=== PATIENT | female | born 1965 | race African-American/Black ===

== ENCOUNTER 2017-02-20 02:12 | Inpatient (IN) | payer OTHER ==
[~2017-02-20] VITALS: Ht 170.2 cm; Wt 115.2 kg
--- NOTE | ~2017-02-20 | 2DMMODE ---
[facility] [address] [employer] [place] [address] 2 D/M-MODE ECHOCARDIOGRAM Name: ENID WASHINGTON Room #: 434-P ADM IN ..#: [id number] Admission: 02/20/17 Attend Phys: Camilo Lau MD Discharge: Date of : 63 Date of Service: 02/20/17 0903 Report #: [id number] THIS REPORT FOR: //name// APPROVED REPORT Study performed: 02/20/2017 08:27:15 EXAM: Comprehensive 2D, Doppler, and color-flow Echocardiogram Patient Location: Echo lab Room #: 434 Status: routine BSA: 2.17 HR: 71 bpm BP: 131/101 mmHg Rhythm: NSR Other Information Study Quality: Good Indications Chest Pressure Dyspnea Chest Pain Hx: HTN, DM 2D Dimensions RVDd: 35.23 mm LVEF(%): 56.52 (>50%) IVSd: 10.37 (7-11mm) LVOT Diam: 20.60 (18-24mm) LVDd: 47.35 mm PWd: 10.48 (7-11mm) Ascending Ao: 34.13 (22-36mm) LVDs: 33.35 (25-40mm) Aortic Root: 34.13 mm Funez's LVEF: 56.52 % Volumes Left Atrial Volume (Systole) Single Plane 4CH: 45.43 mL Single Plane 2CH: 34.61 mL LA ESV Index: 20.00 mL/m2 Aortic Valve AoV Peak Mark.: 1.14 m/s AO Peak Gr.: 5.23 mmHg LVOT Max P.18 mmHg LVOT Max V: 1.02 m/s OC Vmax: 2.98 cm2 [facility] [address] [place] [address] 2 D/M-MODE ECHOCARDIOGRAM Name: ENID WASHINGTON Room #: 434-P [facility] IN ..#: [id number] Admission: 02/20/17 Attend Phys: Camilo Lau MD Discharge: Date of : 63 Date of Service: 02/20/17 0903 Report #: [id number] Mitral Valve E/A Ratio: 0.8 MV Decel. Time: 257.77 ms MV E Max Mark.: 0.59 m/s MV A Mark.: 0.70 m/s MV PHT: 74.75 ms IVRT: 83.04 ms Pulmonary Valve PV Peak Mark.: 0.91 m/s PV Peak Gr.: 3.29 mmHg Pulmonary Vein P Vein S: 0.80 m/s P Vein D: 0.50 m/s P Vein S/D Ratio: 1.60 Tricuspid Valve TR Peak Mark.: 2.11 m/s RAP Estimate: 5.00 mmHg TR Peak Gr.: 17.74 mmHg PA Pressure: 23.00 mmHg Left Ventricle The left ventricle is normal size. There is normal LV segmental wall motion. There is normal left ventricular wall thickness. Left ventricular systolic function is normal. LVEF is 60-65%. Mild diastolic dysfunction is present (impaired relaxation pattern). Right Ventricle The right ventricle is normal size. The right ventricular systolic function is normal. Atria The left atrium size is normal. The right atrium size is normal. Aortic Valve The aortic valve is normal in structure. No aortic regurgitation is present. There is no aortic valvular stenosis. Mitral Valve The mitral valve is normal in structure. There is no mitral valve regurgitation noted. No evidence of mitral valve stenosis. Tricuspid Valve The tricuspid valve is normal in structure. Trace tricuspid [facility] [address] [place] [address] 2 D/M-MODE ECHOCARDIOGRAM Name: ENID WASHINGTON Room #: [address] [place] [address] [place] [facility].#: [id number] Admission: 02/20/17 Attend Phys: Camilo Lau MD Discharge: Date of : 63 Date of Service: 02/20/17 0903 Report #: [id number] regurgitation. Estimated PAP is 20-25mmHg. Pulmonic Valve The pulmonary valve is normal in structure. Mild pulmonic regurgitation. Great Vessels The aortic root is normal in size. The ascending aorta is normal in size. IVC is normal in size and collapses >50% with inspiration. Pericardium There is no pericardial effusion. <Conclusion> Left ventricular systolic function is normal. There is normal LV segmental wall motion. LVEF is 60-65%. The aortic valve is normal in structure. No aortic valvular stenosis or insufficiency. The mitral valve is normal in structure. No mitral valve regurgitation Normal pulmonary artery pressures There is no pericardial effusion. <ELECTRONICALLY SIGNED> By: Joshua Nair MD, FACC 02/20/17902 2 2 Joshua Nair MD, FACC /INF
--- NOTE | ~2017-02-20 | EKG ---
[address] [address] ELECTROCARDIOGRAM REPORT Name: ENID WASHINGTON Room #: 434-P ADM IN M.R.#: [id number] Admission: 02/20/17 Attend Phys: Camilo Lau MD Discharge: Date of : 63 Report #: [id number] THIS REPORT FOR: //name// [facility] ED Test Date: 2017-02-20 Test Time: 02:11:22 Pat Name: ENID WASHINGTON Department: Room: 434 Gender: F Grey Tender: AMY : 1965 Requested By: Hema Guajardo Order Number: [id number] MD: Gurdeep Grullon Measurements Intervals [place] Rate: 84 P: 13 SD: 149 QRS: -10 QRSD: 105 T: 24 QT: 407 QTc: 482 Interpretive Statements Sinus rhythm Left ventricular hypertrophy Inferior infarct, old Compared to ECG 04/25/2015 15:06:25 ST (T wave) deviation no longer present Myocardial infarct finding still present Electronically Signed On 02-20-2017 8:08:11 CDT by Gurdeep Grullon [email or web address] <ELECTRONICALLY SIGNED> By: Gurdeep Grullon MD 02/20/17 0808 0 0 Gurdeep Grullon MD /EPI
[2017-02-20 02:12] VITALS: BP 110/69
[~2017-02-20 02:12] MED LIST: AMBIEN 5 MG TABL5 M1 PO; AMITRIPTYLINE H25 M2 PO; ASPIRIN325 PO; ESTRADIOL 1 MG T1 M1 TRANSDERM; HYDROCHLOROTHIA25 M2 PO; HYDROCODONE-APA1 TA1 PO; IBUPROFEN 800800 M1 PO; LISINOPRIL20 MG PO; NEXIUM40 MG PO; NORVASC10 MG PO; PERCOCET 10-321 EACH PO; PROAIR HFA8.5 GM INH; XANAX 0.5 MG0.5 MG PO; XARELTO10 MG PO
[2017-02-20] MEDS ORDERED: METFORMIN HCL500 MG (02:20)
[2017-02-20 02:54] LABS: HEMATOCRIT 37.5 % (37.0-47.0); HEMOGLOBIN 12.1 gm/dL (12.0-15.0); MCH 27.6 pg (26.0-34.0); MCHC 32.2 g/dL (28.0-37.0); MCV 85.7 fL (80.0-100.0); RBC 4.38 mil/uL (4.20-5.00); RDW 15.2 % (10.5-14.5); WBC 12.6 thou/uL (4.0-11.0)
[2017-02-20 02:59] LABS: ANION GAP 7 mmol/L (7-16); BUN 15 mg/dL (7-18); CHLORIDE 103 mmol/L (98-107); CO2 30 mmol/L (21-32); CREATININE 0.9 mg/dL (0.6-1.0); GLUCOSE 128 mg/dL (74-106); POTASSIUM 3.2 mmol/L (3.5-5.1); SODIUM 140 mmol/L (136-145)
[2017-02-20 03:09] LABS: TROPONIN-I < 0.04 ng/mL (<0.04-0.07)
[2017-02-20 04:45] VITALS: BP 103/58
[2017-02-20 05:00] VITALS: BP 131/101
[2017-02-20 09:00] VITALS: BP 145/89
[2017-02-20 10:17] LABS: CHOLESTEROL 188 mg/dL (<200); HDL CHOLESTEROL 63 mg/dL (>40); LDL CHOLESTEROL 120 mg/dL (<100); TRIGLYCERIDE 29 mg/dL (<150); VLDL 6 mg/dL (<40)
[2017-02-20 16:00] VITALS: BP 128/76
[2017-02-20 19:16] VITALS: BP 124/72
[2017-02-21 04:00] VITALS: BP 166/52
[2017-02-21 04:34] VITALS: BP 120/74
[2017-02-21 05:37] LABS: HEMATOCRIT 37.7 % (37.0-47.0); HEMOGLOBIN 12.2 gm/dL (12.0-15.0); MCH 27.9 pg (26.0-34.0); MCHC 32.5 g/dL (28.0-37.0); MCV 85.8 fL (80.0-100.0); RBC 4.39 mil/uL (4.20-5.00); RDW 15.3 % (10.5-14.5); WBC 10.6 thou/uL (4.0-11.0)
[2017-02-21 05:49] LABS: CREATININE 0.8 mg/dL (0.6-1.0); POTASSIUM 3.9 mmol/L (3.5-5.1)
[2017-02-21 07:41] VITALS: BP 136/82
[2017-02-21 09:37] VITALS: BP 144/93
[2017-02-21 15:56] VITALS: BP 134/75
[2017-02-22 05:46] VITALS: BP 131/77
[2017-02-22 08:00] VITALS: BP 127/83
[2017-02-22 16:00] VITALS: BP 136/77
[2017-02-22 19:11] VITALS: BP 133/74
[2017-02-23 04:00] VITALS: BP 120/76
[2017-02-23 08:00] VITALS: BP 136/99
[2017-02-23] MEDS ORDERED: LIPITOR 20 MG T20 M1 PO (15:42)
[2017-02-23] MEDS ORDERED: ASPIR 8181 MG PO (15:43)
[2017-02-23 15:49] VITALS: BP 136/99
[2017-02-23 15:50] VITALS: BP 126/87
== END 2017-02-23 16:33 | disposition home or self-care (01) | DRG 313 ==
LOC: ER 02:12 → EROBS 03:45 → 4S 03:45 → ENTRNSPT 02-23 16:13 → 4S 02-23 16:33
PROVIDERS: Emergency Medicine; Nurse Practitioner Adult Health; Nurse Practitioner Family
DX: R07.89 Other chest pain (principal); J45.909 Unspecified asthma, uncomplicated; E11.9 Type 2 diabetes mellitus without complications; K21.9 Gastro-esophageal reflux disease without esophagitis; I10 Essential (primary) hypertension; F41.0 Panic disorder [episodic paroxysmal anxiety]; G43.909 Migraine, unspecified, not intractable, without status migrainosus; E78.5 Hyperlipidemia, unspecified; F32.9 Major depressive disorder, single episode, unspecified; E78.00 Pure hypercholesterolemia, unspecified; I34.1 Nonrheumatic mitral (valve) prolapse; D72.829 Elevated white blood cell count, unspecified; Z90.710 Acquired absence of both cervix and uterus; Z83.3 Family history of diabetes mellitus; Z82.49 Family history of ischemic heart disease and other diseases of the circulatory system; Z82.3 Family history of stroke
CPT/HCPCS: 10100